=== PATIENT | female | born 1975 | race Caucasian/White ===

== ENCOUNTER 2016-09-12 09:00 | Emergency (ER) | payer OTHER ==
[~2016-09-12] VITALS: Ht 157.5 cm; Wt 47.8 kg
[~2016-09-12 09:00] MED LIST: DICL100G8 TP; GABA100C PO; GABA300C10 PO; MULT-658 PO; OXYC-229 PO
[2016-09-12] MEDS ORDERED: IMETREX IM (09:36)
[2016-09-12] MEDS ORDERED: PROP40TA PO (09:36)
[2016-09-12] MEDS ORDERED: SODIUM CHLORIDE FLUSH 10ML SYR IVF ONE (10:00)
[2016-09-12] MEDS ORDERED: KETOROLAC 30 MG/1 ML IVPush ONE (10:00)
[2016-09-12] MEDS ORDERED: DEXAMETHASONE 4 MG/ML, 1ML IVPush ONE (10:00)
[2016-09-12] MEDS ORDERED: SODIUM CHLORIDE 0.9% 1,000ML IVBOLUS ONE (10:00)
[2016-09-12] MEDS ORDERED: METOCLOPRAMIDE 5 MG/ML, 2ML IVPush ONE (10:00)
[2016-09-12] MEDS ORDERED: DIPHENHYDRAMINE 50 MG/ML, 1ML IVPush ONE (10:00)
[2016-09-12] MEDS ORDERED: ONDANSETRON 2MG/ML, 2ML ONE (10:01)
[2016-09-12] MEDS ORDERED: KETOROLAC 30 MG/1 ML ONE (10:01)
[2016-09-12] MEDS ORDERED: METOCLOPRAMIDE 5 MG/ML, 2ML ONE (10:01)
[2016-09-12] MEDS ORDERED: DEXAMETHASONE 4 MG/ML, 5ML ONE (10:01)
[2016-09-12] MEDS ORDERED: DIPHENHYDRAMINE 50 MG/ML, 1ML ONE (10:02)
[2016-09-12 12:56] VITALS: BP 119/74
== END 2016-09-12 12:57 | disposition home or self-care (01) ==
LOC: ED 12:00
DX: G43.019 Migraine without aura, intractable, without status migrainosus (principal); G81.90 Hemiplegia, unspecified affecting unspecified side; Z90.710 Acquired absence of both cervix and uterus
CPT/HCPCS: 96361; 96374; 96375; 99284; J1100; J1200; J1885; J2765; J7030

== ENCOUNTER 2017-03-29 18:37 | Emergency (ER) | payer OTHER ==
[~2017-03-29] VITALS: Ht 152.4 cm; Wt 49.1 kg
[~2017-03-29 18:37] MED LIST changes: +DICL100G19 TP; -DICL100G8 TP; +IMETREX IM; -OXYC-229 PO; +OXYC-307 PO; +PROP40TA PO
[2017-03-29] MEDS ORDERED: ONDANSETRON 2MG/ML, 2ML IVPush ONE (19:30)
[2017-03-29] MEDS ORDERED: SODIUM CHLORIDE 0.9% 1,000ML IVBOLUS ONE ×2 (19:30→21:30)
[2017-03-29] MEDS ORDERED: SODIUM CHLORIDE FLUSH 10ML SYR IVF ONE (19:30)
[2017-03-29] MEDS ORDERED: FAMOTIDINE 20 MG/2 ML IVP ONE (19:30)
[2017-03-29 19:32] LABS: MEAN CORPUSCULAR HEMOGLOBIN 31.9 pg (27.0-34.8); MEAN CORPUSCULAR HGB CONC 33.8 g/dL (32.4-35.8); MEAN CORPUSCULAR VOLUME 94.3 fL (80-100); MEAN PLATELET VOLUME 7.6 fL (7.4-10.4); PLATELET COUNT 264 x10^3/uL (130-400); RED CELL DISTRIBUTION WIDTH 13.7 % (9.6-15.2)
[2017-03-29 19:39] LABS: ALANINE AMINOTRANSFERASE 26 U/L (12-78); ALBUMIN 3.6 g/dL (3.4-5.0); ANION GAP 9 mmol/L (5-15); CALCIUM 8.6 mg/dL (8.5-10.1); CHLORIDE 107 mmol/L (98-107); CREATININE 0.58 mg/dL (0.55-1.02)
[2017-03-29 19:44] LABS: ALKALINE PHOSPHATASE 62 U/L (45-117); BILIRUBIN,TOTAL 0.7 mg/dL (0.2-1.0); TOTAL PROTEIN 7.7 g/dL (6.4-8.2)
[2017-03-29 19:45] LABS: BASOPHILS # (AUTO) 0.01 x10^3/uL (0-0.1); BASOPHILS % (AUTO) 0 % (0-1); EOSINOPHILS # (AUTO) 0.06 x10^3/uL (0-0.4); EOSINOPHILS % (AUTO) 0 % (1-7); LYMPHOCYTES # (AUTO) 0.25 x10^3/uL (1-3.4); LYMPHOCYTES % (AUTO) 2 % (22-44); MD SCAN; MONOCYTES # (AUTO) 0.18 x10^3/uL (0.2-0.8); MONOCYTES % (AUTO) 1 % (2-9); NEUTROPHILS # (AUTO) 13.54 x10^3/uL (1.8-6.8); NEUTROPHILS % (AUTO) 97 % (42-75)
[2017-03-29] MEDS ORDERED: SODIUM CHLORIDE 0.9% 1,000 ML IV ONE (19:50)
[2017-03-29] MEDS ORDERED: FAMOTIDINE 20 MG/2 ML ONE (19:58)
[2017-03-29] MEDS ORDERED: DICYCLOMINE 10 MG/ML, 2ML ONE (19:58)
[2017-03-29] MEDS ORDERED: ONDANSETRON 2MG/ML, 2ML ONE (19:58)
[2017-03-29] MEDS ORDERED: DICYCLOMINE 10 MG/ML, 2ML IM ONE (20:00)
[2017-03-29] MEDS ORDERED: OMNIPAQUE 350 MG/ML, 100ML BOTTLE ONE (21:03)
[2017-03-29 22:23] LABS: MICROSCOPIC NOT IND
[2017-03-29 22:25] LABS: CULTURE INDICATED? NO
[2017-03-29 22:41] VITALS: BP 119/83
== END 2017-03-29 22:45 | disposition home or self-care (01) ==
LOC: ED 22:41
DX: N83.291 Other ovarian cyst, right side (principal); A08.11 Acute gastroenteropathy due to Norwalk agent; R00.0 Tachycardia, unspecified; G43.909 Migraine, unspecified, not intractable, without status migrainosus; Z90.49 Acquired absence of other specified parts of digestive tract
CPT/HCPCS: 36415; 74177; 80053; 81003; 83690; 84703; 85025; 93005; 96361; 96372; 96374; 96375; 99285; J0500; J2405; J7030; Q9967; S0028